=== PATIENT | female | born 1940 | race Two or more races ===

== ENCOUNTER 2020-08-20 06:00 | Day surgery (SDC) | payer OTHER ==
[~2020-08-20 06:00] MED LIST: ALENDRONATE SOD70 MG; AYR SALINE50 M2; GLIPIZIDE XL10 MG; HYDRODIURIL12.5 MG PO; LEVO-T50 MCG; LISINOPRIL20 MG; SYMBICORT 16010.2 GM
== END 2020-08-20 18:50 | disposition home or self-care (01) ==
LOC: CIR.AMB 06:00
PROVIDERS: ATTEND Surgery
DX: C50.812 Malignant neoplasm of overlapping sites of left female breast (principal); R59.0 Localized enlarged lymph nodes; Z20.828 Contact with and (suspected) exposure to other viral communicable diseases